=== PATIENT | male | born 1935 | race Hispanic/Latino ===

== ENCOUNTER 2022-10-02 19:39 | Emergency (ER) | payer MEDICARE, OTHER ==
[~2022-10-02] VITALS: Ht 165.1 cm; Wt 47.6 kg
[2022-10-02] MEDS ORDERED: ASPIRIN 81 MG CHEW TAB PO ONE (19:45)
[2022-10-02 20:22] LABS: BASOPHILS % 0.2 % (0.0-1.0); HEMATOCRIT 39.2 % (38.2-49.6); HEMOGLOBIN 13.4 g/dL (14.0-18.0); LYMPHOCYTES # (AUTO) 0.3 (1.0-3.2); MEAN CORPUSCULAR HEMOGLOBIN 32.4 pg (28-32); MEAN CORPUSCULAR HGB CONC 34.2 g/dL (31-35); MEAN CORPUSCULAR VOLUME 94.9 fL (81-99); MONOCYTES # (AUTO) 1.1 (0.2-0.8); MONOCYTES % 8.5 % (4.4-11.3); NEUTROPHILS # (AUTO) 11.3 (2.1-6.9); NEUTROPHILS % 87.4 % (38.7-80.0); PLATELET COUNT 256 x10e3/uL (140-360); RED BLOOD COUNT 4.13 x10e6/uL (4.3-5.7); RED CELL DISTRIBUTION WIDTH 12.4 % (11.7-14.4)
[2022-10-02 20:37] LABS: ALBUMIN 3.2 g/dL (3.5-5.0); ALBUMIN/GLOBULIN RATIO 1.1 (0.8-2.0); ANION GAP 13.9 mmol/L (8-16); CALCIUM 8.4 mg/dL (8.4-10.2); CREATININE, SERUM 0.66 mg/dL (0.72-1.25); POTASSIUM 3.9 mmol/L (3.5-5.1)
[2022-10-02 20:43] LABS: CREATINE KINASE MB 2.6 ng/mL (0-5.0)
[2022-10-02] MEDS ORDERED: IOPAMIDOL 370 MG/ML 100 ML INFUS..BTL INJ ONE (21:00)
[2022-10-02 22:48] LABS: CLARITY,URINE CLOUDY (CLEAR); COLOR,URINE YELLOW (YELLOW); KETONES,URINE TRACE (NEGATIVE); LEUKOCYTE ESTERASE ,URINE NEGATIVE (NEGATIVE); NITRITE,URINE NEGATIVE (NEGATIVE); PROTEIN,URINE DIPSTICK 1+ (NEGATIVE); URINE UROBILINOGEN >=8 mg/dL (0.2 - 1)
[2022-10-02] MEDS ORDERED: ASPIRIN 81 MG CHEW TAB ONE (22:53)
[2022-10-02] MEDS ORDERED: SODIUM CHLORIDE 0.9% 250ML 250 ML ONE (22:54)
[2022-10-02 22:59] LABS: RBC,URINE 21-50 /HPF (0-5); WBC,URINE (MAN) 0-5 /HPF (0-5)
[2022-10-02 23:00] LABS: BACTERIA,URINE FEW /HPF; EPITHELIAL CELLS,URINE FEW /LPF
[2022-10-03 02:08] VITALS: BP 108/85
== END 2022-10-03 01:10 | disposition other institution (70) ==
LOC: ER 19:43
DX: R53.1 Weakness (principal); K83.09 Other cholangitis; J18.9 Pneumonia, unspecified organism; K85.90 Acute pancreatitis without necrosis or infection, unspecified; R62.7 Adult failure to thrive; E87.1 Hypo-osmolality and hyponatremia; Z20.822 Contact with and (suspected) exposure to COVID-19
CPT/HCPCS: 0223U; 36415; 70450; 71045; 74177; 80053; 80329; 81001; 82550; 82553; 83605; 83690; 84484; 85025; 87040; 87071; 87186; 87205; 93005; 99284; J2543; J7050; Q9967